=== PATIENT | male | born 1985 | race African-American/Black ===

== ENCOUNTER → 2018-06-29 | Outpatient (CLI) | payer OTHER ==
--- NOTE | 2018-06-29 11:37 | REP ---
Clinical: Trauma. Technique: AP, lateral, bilateral oblique views of the left ankle. Findings: Mild generalized swelling. No obvious acute fracture dislocation. Ankle mortise intact. Impression: Mild generalized swelling. No obvious acute fracture or dislocation. If the patient remains symptomatic consider noncontrast CT for further investigation. Electronically Signed by Pato Mattson MD 06/29/2018 11:28 A
== END ==
LOC: M RAD 09:20
PROVIDERS: ATTEND Surgery
DX: S99.912D Unspecified injury of left ankle, subsequent encounter (principal); X58.XXXD Exposure to other specified factors, subsequent encounter